=== PATIENT | male | born 1995 | race Hispanic/Latino ===

== ENCOUNTER 2017-09-17 14:18 | Emergency (ER) | payer SELFPAY ==
[2017-09-17 15:04] LABS: Basophils % (Auto) 0.2 % (0.0-1.8); Eosinophils # (Auto) 0.1 K/mm3 (0.0-0.4); Eosinophils % (Auto) 0.5 % (0.0-4.3); Hemoglobin 16.7 gm/dl (11.8-15.2); Lymphocytes # (Auto) 0.9 K/mm3 (1.2-5.4); Lymphocytes % (Auto) 6.6 % (13.4-35.0); Mean Corpuscular HGB Conc 35 % (32-34); Mean Corpuscular Hemoglobin 31 pg (28-32); Mean Corpuscular Volume 90 fl (84-94); Monocytes # (Auto) 0.7 K/mm3 (0.0-0.8); Monocytes % (Auto) 5.2 % (0.0-7.3); Platelet Count 245 K/mm3 (140-440); Red Blood Count 5.34 M/mm3 (3.65-5.03); Red Cell Distribution Width 13.5 % (13.2-15.2)
[2017-09-17 15:16] LABS: BUN/Creatinine Ratio 15; Blood Urea Nitrogen 15 mg/dL (9-20); Calcium 9.9 mg/dL (8.4-10.2); Hemolysis Index 4
--- NOTE | 2017-09-17 15:24 | XRay Report ---
ROUTINE CHEST, TWO VIEWS: HISTORY: Shortness of breath. The trachea, heart, mediastinal contour, lung wills and bony thorax are unremarkable. IMPRESSION: Unremarkable chest x-ray.
[2017-09-17 18:15] VITALS: BP 120/93
[2017-09-17] MEDS ORDERED: XOPENEX IH ONE (18:18)
[2017-09-17] MEDS ORDERED: NACL 0.9% 1000 ML 1,000 ML IV ONE (18:18)
--- NOTE | 2017-09-17 19:00 | Emergency Department Report ---
HPI <JUHI CHAPMANNICHOLAS Howell - Last Filed: 09/17/17 21:48> - HPI HPI: 21-year-old male presents to the emergency department with a complaint of some shortness of breath, wheezing and coughing has been going on for the past 1-2 days. The patient works doing HVAC and thinks that his work may have exacerbated some of these recent symptoms. He does have a history of recurrent bronchitis. He is a tobacco smoker. [facility] and apparently had some low oxygen so EMS was called. He came by [facility] and received some breathing treatments and IV Decadron in route. No recent travel or sick contacts at home. <GEORGIE ENGLISH S - Last Filed: 09/19/17 16:36> - General Chief Complaint: Upper Respiratory Infection Time Seen by Provider: 09/17/17 18:12 ED Past Medical Hx <EKATERINA CHAPMAN - Last Filed: 09/17/17 21:48> - Past Medical History Previous Medical History?: Yes Additional medical history: frequent bronchitis - Surgical History Past Surgical History?: No - Social History Smoking Status: Current Every Day Smoker Substance Use Type: Alcohol, Marijuana <GEORGIE ENGLISH - Last Filed: 09/19/17 16:36> - Medications Home Medications: Home Medications Medication Instructions Recorded Confirmed Last Taken Type ALBUTEROL Inhaler [ProAir HFA 2 puff IH QID PRN #1 inhalation 09/17/17 Unknown Rx Inhaler] Azithromycin [Zithromax Z-JUANITO] 250 mg PO DAILY #6 tab 09/17/17 Unknown Rx guaiFENesin/CODEINE [Robitussin AC] 5 ml PO Q6H PRN #100 ml 09/17/17 Unknown Rx predniSONE [Deltasone] 20 mg PO QDAY #5 tab 09/17/17 Unknown Rx ED Review of Systems ROS: Stated complaint: DIFF BREATHING Other details as noted in HPI <EKATERINA CHAPMAN - Last Filed: 09/17/17 21:48> ROS: Stated complaint: DIFF BREATHING Other details as noted in HPI Comment: All other systems reviewed and negative Constitutional: denies: chills, fever Eyes: denies: eye pain, eye discharge, vision change ENT: denies: ear pain, throat pain Respiratory: cough, shortness of breath, wheezing Cardiovascular: denies: chest pain, edema Gastrointestinal: denies: abdominal pain, nausea, diarrhea Genitourinary: denies: urgency, dysuria Musculoskeletal: denies: back pain, joint swelling, arthralgia Skin: denies: rash, lesions Neurological: denies: headache, weakness, paresthesias <AMADORGEORGIE S - Last Filed: 09/19/17 16:36> Physical Exam - Physical Exam Vital Signs: Vital Signs 09/17/17 09/17/17 14:22 18:14 Temperature 99.4 F 100.4 F H Pulse Rate 126 H 112 H Respiratory 22 18 Rate Blood Pressure 134/81 Blood Pressure 120/93 [Left] O2 Sat by Pulse 95 93 Oximetry <EKATERINA CHAPMAN - Last Filed: 09/17/17 21:48> - Physical Exam Vital Signs: Vital Signs 09/17/17 09/17/17 14:22 18:14 Temperature 99.4 F 100.4 F H Pulse Rate 126 H 112 H Respiratory 22 18 Rate Blood Pressure 134/81 Blood Pressure 120/93 [Left] O2 Sat by Pulse 95 93 Oximetry Physical Exam: GENERAL: The patient is well-developed well-nourished. HENT: Normocephalic. Atraumatic. Patient has moist mucous membranes. EYES: Extraocular motions are intact. Pupils equal reactive to light bilaterally. NECK: Supple. Trachea is midline. CHEST/LUNGS: Mild to moderate wheezing throughout the chest. There is a dry cough heard during examination. No tachypnea or accessory muscle use. There is no respiratory distress noted. HEART/CARDIOVASCULAR: Regular. There is mild tachycardia. There is no murmur. ABDOMEN: Abdomen is soft, nontender. Patient has normal bowel sounds. There is no abdominal distention. SKIN: Skin is warm and dry. NEURO: The patient is awake, alert, and oriented. The patient is cooperative. The patient has no focal neurologic deficits. The patient has normal speech. MUSCULOSKELETAL: There is no tenderness or deformity. There is no limitation range of motion. There is no evidence of acute injury. <GEORGIE ENGLISH S - Last Filed: 09/19/17 16:36> ED Course Vital Signs 09/17/17 09/17/17 14:22 18:14 Temperature 99.4 F 100.4 F H Pulse Rate 126 H 112 H Respiratory 22 18 Rate Blood Pressure 134/81 Blood Pressure 120/93 [Left] O2 Sat by Pulse 95 93 Oximetry Vital Signs 09/17/17 09/17/17 09/17/17 14:22 18:14 21:45 Temperature 99.4 F 100.4 F H 99.5 F Pulse Rate 126 H 112 H 100 H Respiratory 22 18 18 Rate Blood Pressure 134/81 Blood Pressure 120/93 [Left] O2 Sat by Pulse 95 93 99 Oximetry - Reevaluation(s) Reevaluation #1: 09/17/17 21:49 She was given additional nebulizer treatments Xopenex 1.25 mg in emergency room per Dr. Worthy and he said he is feeling a lot better. He was given Tylenol 650 mg for fever and IV fluid 1 L bolus. Patient discharged home in stable condition. Vital signs are stable and he has low-grade temperature of 99.5 which is better. Heart rate is 100. Patient states that he is feeling a lot better. He was given discharge instructions and instructed to follow up with primary care in 1-2 days. Patient given good Rx card as he doesn't have insurance. I gave him discharge teaching regarding medication, diagnosis, x-ray report, laboratory report, treatment plan and need to follow up in the voice understanding. I also instructed him that he needs to return to hospital if his symptoms worsen. <EKATERINA CHAPMAN - Last Filed: 09/17/17 21:48> Vital Signs 09/17/17 09/17/17 14:22 18:14 Temperature 99.4 F 100.4 F H Pulse Rate 126 H 112 H Respiratory 22 18 Rate Blood Pressure 134/81 Blood Pressure 120/93 [Left] O2 Sat by Pulse 95 93 Oximetry <GEORGIE ENGLISH - Last Filed: 09/19/17 16:36> ED Medical Decision Making - Lab Data Result diagrams: 09/17/17 14:34 09/17/17 14:34 Lab Results 09/17/17 09/17/17 Range/Units 14:34 14:34 WBC 14.3 H (4.5-11.0) K/mm3 RBC 5.34 H (3.65-5.03) M/mm3 Hgb 16.7 H (11.8-15.2) gm/dl Hct 48.0 H (35.5-45.6) % MCV 90 (84-94) fl MCH 31 (28-32) pg MCHC 35 H (32-34) % RDW 13.5 (13.2-15.2) % Plt Count 245 (140-440) K/mm3 Lymph % (Auto) 6.6 L (13.4-35.0) % [place] % (Auto) 5.2 (0.0-7.3) % Eos % (Auto) 0.5 (0.0-4.3) % Baso % (Auto) 0.2 (0.0-1.8) % Lymph # 0.9 L (1.2-5.4) K/mm3 [place] # 0.7 (0.0-0.8) K/mm3 Eos # 0.1 (0.0-0.4) K/mm3 Baso # 0.0 (0.0-0.1) K/mm3 Seg Neutrophils % 87.5 H (40.0-70.0) % Seg Neutrophils # 12.5 H (1.8-7.7) K/mm3 Sodium 142 (137-145) mmol/L Potassium 3.9 (3.6-5.0) mmol/L Chloride 100.5 (98-107) mmol/L Carbon Dioxide 23 (22-30) mmol/L Anion Gap 22 mmol/L BUN 15 (9-20) mg/dL Creatinine 1.0 (0.8-1.5) mg/dL Estimated GFR > 60 ml/min BUN/Creatinine Ratio 15 % Glucose 108 H (75-100) mg/dL Calcium 9.9 (8.4-10.2) mg/dL Troponin T < 0.010 (0.00-0.029) ng/mL - Radiology Data Radiology results: report reviewed Chest x-ray reveals unremarkable chest x-ray. Dictated by radiologist <EKATERINA CHAPMAN - Last Filed: 09/17/17 21:48> - Lab Data Result diagrams: 09/17/17 14:34 09/17/17 14:34 - Radiology Data Radiology results: image reviewed interpreted by me: Chest x-ray does not show any acute process. There are no pleural effusions, obvious pneumonia and there is no pneumothorax. - Medical Decision Making This patient came in with a couple days of some shortness of breath, wheezing. He is a tobacco smoker and also thinks that he has some exposure to dust and other allergens during his job. He did not have any complaints of fever but presented with some low-grade fever. Labs showed a leukocytosis of 14,000 but normal electrolytes and negative troponin. Chest x-ray does not show any acute process. Patient was given a breathing treatment here. He will go home with steroids, Z-Juanito and albuterol. He has been given referrals for primary care. We had a smoking cessation talk. He'll return to the ER if any worsening symptoms or any acute distress. - Differential Diagnosis pneumonia, asthma, bronchitis <GEORGIE ENGLISH - Last Filed: 09/19/17 16:36> Critical care attestation.: If time is entered above; I have spent that time in minutes in the direct care of this critically ill patient, excluding procedure time. <EKATERINA CHAPMAN - Last Filed: 09/17/17 21:48> Critical Care Time: No Critical care attestation.: If time is entered above; I have spent that time in minutes in the direct care of this critically ill patient, excluding procedure time. <GEORGIE ENGLISH - Last Filed: 09/19/17 16:36> ED Disposition <EKATERINA CHAPMAN - Last Filed: 09/17/17 21:48> Is pt being admited?: No Time of Disposition: 19:07 <GEORGIE ENGLISH Bk - Last Filed: 09/19/17 16:36> Clinical Impression: Bronchitis, Bronchospasm, Tobacco use disorder Asthma Qualifiers: Asthma severity: unspecified severity Asthma persistence: unspecified Asthma complication type: unspecified Qualified Code(s): J45.909 - Unspecified asthma, uncomplicated Disposition: TO HOME OR SELFCARE Condition: Stable Instructions: Asthma (ED), Acute Bronchitis (ED) Additional Instructions: Please follow up with a primary care physician in the next few days. Take the antibiotics and steroids as prescribed. Return to the emergency Department with any worsening of your symptoms or any acute distress. You have been prescribed a medication that is sedating and therefore should not be taken prior to driving, working, and responsible for children and in no way should be mixed with alcohol of any quantity. Please try and quit smoking as there is no benefit to tobacco use and it can only cause you harm. Prescriptions: ALBUTEROL Inhaler [ProAir HFA Inhaler] 2 puff IH QID PRN #1 inhalation PRN Reason: Shortness Of Breath Azithromycin [Zithromax Z-JUANITO] 250 mg PO DAILY #6 tab guaiFENesin/CODEINE [Robitussin AC] 5 ml PO Q6H PRN #100 ml PRN Reason: Cough predniSONE [Deltasone] 20 mg PO QDAY #5 tab Referrals: PRIMARY CARE, [Primary Care Provider] - 3-5 Days XIMENA SOLOMON JR, MD [Staff Physician] - 3-5 Days [facility] [Outside] - 3-5 Days
[2017-09-17] MEDS ORDERED: TYLENOL PO ONE (19:03)
== END 2017-09-17 21:50 | disposition home or self-care (01) ==
LOC: ED 14:18
DX: J45.909 Unspecified asthma, uncomplicated (principal); F17.200 Nicotine dependence, unspecified, uncomplicated; F12.10 Cannabis abuse, uncomplicated
CPT/HCPCS: 36415; 71046; 80048; 84484; 85025; 93005; 93010; 99284; J7030; 94640